=== PATIENT | male | born 1955 | race Caucasian/White ===

== ENCOUNTER 2017-01-17 18:52 | Emergency (ER) | payer OTHER ==
[~2017-01-17 18:52] MED LIST: ARTHRITIS PAIN650 M6 PO; ASPIRIN81 M1 PO; BENTYL20 MG PO; CLARITIN-D1 TAB.SR .; CLARITIN10 M8 PO; KEFLEX500 MG PO; LIPITOR10 M1 PO; LISINOPRIL10 M1 PO; LORTAB 5/500 TA1 TAB PO; NO HOME MEDS; NORCO 5/325 TAB1 TAB PO
[2017-01-17] MEDS ORDERED: KEFLEX500 M4 PO (20:00)
[2017-04-01] MEDS ORDERED: MEDROL4 M2 PO (15:02)
[2017-04-01] MEDS ORDERED: CYCLOBENZAPRINE10 M1 PO (15:11)
== END 2017-01-17 20:30 ==
LOC: EDMED 18:52
PROC: 0HQGXZZ Repair Left Hand Skin, External Approach (ICD-10-PCS; principal; 2017-01-17)
DX: S61.213A Laceration without foreign body of left middle finger without damage to nail, initial encounter (principal); I25.10 Atherosclerotic heart disease of native coronary artery without angina pectoris; I10 Essential (primary) hypertension; Z79.82 Long term (current) use of aspirin; Z79.899 Other long term (current) drug therapy; W28.XXXA Contact with powered lawn mower, initial encounter; Y92.019 Unspecified place in single-family (private) house as the place of occurrence of the external cause